=== PATIENT | female | born 1990 | race Caucasian/White ===

== ENCOUNTER 2022-03-18 21:35 | Emergency (ER) | payer OTHER ==
[~2022-03-18] VITALS: Ht 162.6 cm; Wt 72.2 kg
[2022-03-18] MEDS ORDERED: ZOLO50TA PO (21:56)
[2022-03-19] MEDS ORDERED: CEFD300C41 PO (07:47)
[2022-03-19] MEDS ORDERED: BENZ1LOZ9 PO (07:47)
[2022-03-19 07:53] VITALS: BP 122/77
== END 2022-03-19 08:24 | disposition home or self-care (01) ==
LOC: M ED 21:35
DX: J02.0 Streptococcal pharyngitis (principal); F41.9 Anxiety disorder, unspecified; F32.9 Major depressive disorder, single episode, unspecified

== ENCOUNTER 2023-01-09 20:26 | Emergency (ER) | payer OTHER ==
[~2023-01-09] VITALS: Ht 162.6 cm; Wt 80.5 kg
[~2023-01-09 20:26] MED LIST: BENZ1LOZ9 PO; CEFD1CAP9 PO; ZOLO50TA PO
[2023-01-09 21:27] LABS: RSV AMPLIFICATION NEGATIVE (NEGATIVE)
[2023-01-09 23:32] LABS: VENOUS BASE EXCESS 1.4 (-2.0-2.0); VENOUS HCO3 27.1 MMOL/L (23.0-27.0); VENOUS O2 SATURATION 73.7 % (60.0-80.0); VENOUS PARTIAL PRESSURE CO2 47.4 mmHg (38.0-50.0); VENOUS PARTIAL PRESSURE O2 39.9 mmHg (30.0-50.0); VENOUS PH 7.375 UNITS (7.330-7.430); VENOUS STANDARD HCO3 25.2 MMOL/L; VENOUS TOTAL CO2 28.6 MMOL/L (24.0-28.0)
[2023-01-10 00:13] LABS: BASO % 0.2 % (0.0-1.0); EOS # 0.1 10^3/uL (0.0-0.5); EOS % 0.8 % (0.0-3.0); HEMATOCRIT 33.4 % (36.0-47.0); HEMOGLOBIN 10.7 g/dl (12.0-15.5); LYMPH # 2.4 10^3/uL (1.5-5.0); LYMPH % 16.7 % (24.0-44.0); MEAN CORPUSCULAR HEMOGLOBIN 25.7 pg (27.0-33.0); MEAN CORPUSCULAR VOLUME 80.3 fl (80.0-96.0); MONO # 0.9 10^3/uL (0.0-0.8); MONO % 6.5 % (2.0-8.0); NEUTROPHILS # 10.7 10^3/uL (1.5-8.5); NEUTROPHILS % 75.4 % (36.0-66.0); PLATELET COUNT, AUTOMATED 281 10^3/uL (150-450); RED BLOOD COUNT 4.16 10^6/uL (4.00-5.40); WHITE BLOOD COUNT 14.2 10^3/uL (4.0-10.0)
[2023-01-10 00:40] LABS: INR 0.97; PROTHROMBIN TIME 12.6 SECONDS (12.5-14.5)
[2023-01-10 00:41] LABS: PARTIAL THROMBOPLASTIN TIME 30.7 SECONDS (24.8-34.2)
[2023-01-10 00:42] LABS: CK-MB VALUE MASS < 1.0 NG/ML (<3.6)
[2023-01-10 00:44] LABS: BLOOD UREA NITROGEN 15 MG/DL (9-23); CALCIUM LEVEL 8.6 MG/DL (8.5-10.1); CARBON DIOXIDE LEVEL 27 MMOL/L (20-31); CHLORIDE LEVEL 108 MMOL/L (98-107); CPK CREATINE PHOSPHOKINASE 74 U/L (34-145); CREATININE FOR GFR 0.82 MG/DL (0.55-1.30); D-DIMER QUANT 0.49 ug/mL (<0.5); GLOMERULAR FILTRATION RATE > 60.0 (>60); GLUCOSE, FASTING 90 MG/DL (60-100); MB/CK RELATIVE INDEX 1.35 (< OR =4); POTASSIUM SERUM 4.2 MMOL/L (3.5-5.1); SODIUM LEVEL 142 MMOL/L (136-145)
[2023-01-10 00:45] LABS: HCG, SERUM QUALITATIVE NEGATIVE (NEGATIVE)
[2023-01-10] MEDS ORDERED: ISOVUE-370 76% 100ML VIAL As Ordered ONE (01:32)
[2023-01-10] MEDS ORDERED: NS 1,000 ML IV ONE ×2 (01:40→04:30)
[2023-01-10] MEDS ORDERED: BENZONATATE 100MG CAPSULE PO ONE (01:55)
[2023-01-10] MEDS ORDERED: methylPREDNISolone 125MG 2ML VIAL IV ONE (01:55)
[2023-01-10] MEDS ORDERED: LevoFLOXacin IV 750 MG in IV 1 EA IV ONE (04:20)
[2023-01-10] MEDS ORDERED: LEVO1TAB40 PO (04:36)
[2023-01-10 05:00] VITALS: BP 122/66; TEMP 97.6
[2023-01-10 05:45] VITALS: O2SAT 99
== END 2023-01-10 06:36 | disposition home or self-care (01) ==
LOC: M ED 20:26
DX: J18.9 Pneumonia, unspecified organism (principal); Z11.52 Encounter for screening for COVID-19; R00.0 Tachycardia, unspecified
CPT/HCPCS: 71046; 71275; 80048; 82550; 82553; 82803; 84484; 84703; 85025; 85379; 85610; 85730; 87486; 87581; 87631; 87633; 87798; 93005; 93041; 94760; 96361; 96365; 96375; 99285; J1956; J2930; Q9967

== ENCOUNTER 2023-06-08 08:34 | Emergency (ER) | payer OTHER ==
[~2023-06-08] VITALS: Ht 162.6 cm; Wt 81.5 kg
[~2023-06-08 08:34] MED LIST changes: +LEVO1TAB40 PO
[2023-06-08] MEDS ORDERED: ETON1VAG3 (08:46)
[2023-06-08] MEDS ORDERED: ALBU8.5H INH (11:42)
[2023-06-08 11:50] VITALS: BP 120/72; TEMP 97.8; O2SAT 97
== END 2023-06-08 11:52 | disposition home or self-care (01) ==
LOC: M ED 08:34
DX: J06.9 Acute upper respiratory infection, unspecified (principal); F32.A Depression, unspecified; Z11.52 Encounter for screening for COVID-19